=== PATIENT | female | born 1970 ===

== ENCOUNTER → 2020-02-15 10:24 | Outpatient (BNVA) | payer BC, SELFPAY | PROVIDERS: Family Provider Family Medicine; Visit Provider Family Medicine | DX: E03.8 Other specified hypothyroidism (principal); R53.82 Chronic fatigue, unspecified | CPT/HCPCS: 84443 ==

== ENCOUNTER → 2021-08-09 10:21 | Outpatient (BNVA) | payer BC, SELFPAY | PROVIDERS: Family Provider Family Medicine; Visit Provider Family Medicine | DX: E03.8 Other specified hypothyroidism (principal); E07.9 Disorder of thyroid, unspecified; J45.20 Mild intermittent asthma, uncomplicated; Z12.31 Encounter for screening mammogram for malignant neoplasm of breast | CPT/HCPCS: 84443 ==

== ENCOUNTER 2021-11-15 10:03 | Outpatient (CLI) | payer BC, SELFPAY ==
--- NOTE | 2021-11-15 10:32 | MM_ITS ---
WS: [id number] BILATERAL SCREENING DIGITAL BREAST TOMOSYNTHESIS MAMMOGRAM WITH CAD HISTORY: SCREENING COMPARISON: None available. Bilateral CC and MLO views with tomosynthesis and synthetic mammography submitted. Computer aided det ection analyzed. Breast composition: The breasts are heterogeneously dense, which may obscure small masses. No suspici ous masses, microcalcifications or architectural distortion. MM/[id number] IMPRESSION: BI-RADS: 1-Negative FOLLOW UP: 1 Year Follow-up
== END 2021-11-15 10:04 | disposition home or self-care (01) ==
LOC: RADSHAW 10:08
PROVIDERS: Family Provider Family Medicine; Visit Provider Family Medicine
DX: Z12.31 Encounter for screening mammogram for malignant neoplasm of breast (principal)
CPT/HCPCS: 77063; 77067

== ENCOUNTER → 2022-10-31 11:08 | Outpatient (BNVA) | payer BC, SELFPAY | PROVIDERS: Family Provider Family Medicine; PCP Family Medicine; Visit Provider Family Medicine | DX: Z00.00 Encounter for general adult medical examination without abnormal findings (principal); E03.8 Other specified hypothyroidism | CPT/HCPCS: 84443 ==

== ENCOUNTER → 2023-07-02 11:41 | Outpatient (BNVA) | payer BC, SELFPAY | PROVIDERS: Family Provider Family Medicine; PCP Family Medicine; Visit Provider Family Medicine | DX: E55.9 Vitamin D deficiency, unspecified (principal); E03.8 Other specified hypothyroidism | CPT/HCPCS: 80053; 82652; 84443; 85025 ==